=== PATIENT | male | born 1955 | race Caucasian/White ===

== ENCOUNTER → 2018-11-18 | Outpatient (CLI) | payer BC ==
--- NOTE | 2018-11-18 12:50 | CONS ---
CONSULTATION CONSULTATION NOTE FOR SLEEP APNEA: This 63-year-old male patient coming into the sleep center at [facility] due to concerns of sleep apnea. The patient has snoring and has been told to quit breathing by his . The patient is currently retired. He is worried that this problem is affecting his health in general. He is feeling a bit tired and sleepy during the day. He goes to bed between 10 and midnight and wakes up at 6 a.m. in the morning. His current Whiterocks Score is at 12. He takes a few minutes to fall asleep. His sleep is not fragmented. No recent weight gain, probably only limited weight gain of 6 to 7 pounds since his residential. No sleep paralysis, hallucinations or cataplexy. Patient sleeps on his back. No TV in the bedroom. He is nonsmoker. No history of substance abuse or alcoholism. No history of insomnia. PAST MEDICAL HISTORY: Hypertension, hyperlipidemia and acid reflux. SURGICAL HISTORY: Negative. DRUG ALLERGIES: Drug allergies are to PENICILLINS. OUTPATIENT MEDICATION LIST: Outpatient medication list includes: Pravastatin 40 q day, omeprazole 20 q. day, atenolol 50 q. day, losartan 50 mg p.o. q. day, hydrochlorothiazide 12.5 mg p.o. q. day. SOCIAL HISTORY: Nonsmoker. No history of alcoholism. No history of IV drugs. FAMILY HISTORY: Positive for sleep apnea in his brother who wears a CPAP and his father with sleep apnea. REVIEW OF SYSTEMS: Fourteen-point review of system was done. No history of any insomnia. No choking or gasping for air during sleep. No nocturia. No grinding of the teeth. No sleepwalking or dry mouth. He is a nose breather. No anxiety or panic attacks. No claustrophobia. No palpitation. No heartburn. No restlessness of lower extremities. No depression. PHYSICAL EXAMINATION: VITAL SIGNS: BP is 137/80, pulse 56, respirations 16, temperature 98.6, saturation 96% on room air. Height 5 feet 4 inches, weight is 185, neck size is 16 inches. GENERAL APPEARANCE: Calm, comfortable. HEAD: Atraumatic, normocephalic. NECK: Supple. No JVD. Mallampati class 4. No goiter or neck masses. LUNGS: Clear to auscultation. HEART: Sounds regular rate and rhythm. Normal S1, S2. No S3, S4. No murmurs. ABDOMEN: Soft, nontender. No organomegaly. EXTREMITIES: No edema. No cyanosis or clubbing. NEUROLOGIC: Alert and oriented x3. No focal neurological deficits. PSYCHIATRIC: Negative for anxiety or depression. IMPRESSION: 1. Suspected obstructive sleep apnea based on snoring, witnessed apneas and chronic tiredness and sleepiness with an Whiterocks score of 12. 2. Hypertension. 3. Hyperlipidemia. 4. Acid reflux. PLAN: 1. Encourage weight loss. 2. Sleep on his side. 3. Avoid driving, especially when feeling drowsy or sleepy. 4. Investigation for sleep apnea with a polysomnogram will be done and further recommendations are to follow. MMODL / IJN: [id number] /
== END | disposition home or self-care (01) ==
CPT/HCPCS: 99211

== ENCOUNTER → 2019-03-24 | Outpatient (CLI) | payer BC ==
--- NOTE | 2019-03-24 18:37 | PN ---
PROGRESS NOTE Keyshawn is 64 with severe obstructive sleep apnea, AHI of 55, coming in for a compliancy check. The patient underwent CPAP therapy at a pressure of 15 cm of water based on the titration that was completed recently. Note that the patient was doing well at a lower level of pressure, yet I decided to give him CPAP pressure of 15 to maintain his saturation above 90%. On today's evaluation he was having some leaks around the mask and, based on the compliance data, he is leaking on the order of 44 L/minute. He is using a DreamWear [id number]. His AHI is down to 3.5 and the treatment is successful, as the patient is achieving more than 4 hours of CPAP use for 100% of the time. He is averaging around 6 hours of CPAP use per night. Clinically he is feeling better; much more alert and awake during the day. Snoring has subsided. The patient has no major complaints for now. No tiredness or sleepiness or fatigue. He wants to explore other mask options. REVIEW OF SYSTEMS: Fourteen-point review of systems was done. Positive findings were all mentioned above in the history of present illness. PHYSICAL EXAMINATION: BP is 142/89, pulse 56, respirations 16, temperature 98.6. Saturation is 96% on room air. Red Wing Score is 7. Weight is 193.4. GENERAL APPEARANCE: Calm, comfortable. HEAD: Atraumatic, normocephalic. NECK: Supple. No JVD. No goiter or neck masses. LUNGS: Clear to auscultation. HEART: Heart sounds are regular rate and rhythm. Normal S1, S2. No S3, S4. No murmurs. ABDOMEN: Soft, nontender. No organomegaly. EXTREMITIES: No edema. No cyanosis or clubbing. NEUROLOGIC: Alert and oriented x3. No focal neurological deficits. PSYCHIATRIC: Negative for anxiety or depression. IMPRESSION: 1. Severe obstructive sleep apnea with an apnea/hypopnea index of 55, currently on CPAP pressure of 15 cm of water. Improved clinically; no major hypersomnia or sleepiness. 2. Hypersomnia, improved. Red Wing Score is 12. 3. Hypertension. 4. Hyperlipidemia. 5. Acid reflux. PLAN: 1. Change the patient to an APAP mode, minimum pressure of 8, maximum pressure of 15. 2. Offer this patient an AirFit N30i small-sized nose mask. 3. Encourage weight loss. 4. Do a short-term compliancy in regard to his CPAP therapy. I would like to see improvement in the leaks around the mask. Humidity level is at 4 with a temperature of tubing at 86 degrees Fahrenheit. Will continue to follow. MIKE / CHENGN: [id number] /
== END | disposition home or self-care (01) ==
LOC: SLEEP 16:08
PROVIDERS: ATTEND Internal Medicine Critical Care Medicine
DX: G47.33 Obstructive sleep apnea (adult) (pediatric) (principal); I10 Essential (primary) hypertension; E78.5 Hyperlipidemia, unspecified; K21.9 Gastro-esophageal reflux disease without esophagitis; Z99.89 Dependence on other enabling machines and devices

== ENCOUNTER → 2020-03-29 | Outpatient (CLI) | payer MEDICARE ==
--- NOTE | 2020-03-29 17:25 | PN ---
PROGRESS NOTE Keyshawn is coming in for an annual check regarding his DIONISIO. He is on an APAP, minimum pressure of 8, maximum pressure of 15, for severe obstructive sleep apnea with a baseline AHI of 55. His weight has been down by around 6 pounds. He remains extremely compliant, averaging around 7.6 hours of CPAP use per night, and CPAP use for more than 4 hours is above 95%. Average pressure is 12.6 cm of water and the leak is on the order of 29 L/minute and AHI is down to 2.5 while on treatment. His current mask interface is an AirFit N30i, medium-sized. No issues with cardiovascular disease. His blood pressure apparently has been under good control. It is a little bit elevated on today's evaluation. No angina. No palpitations. No chest pain. No atrial fibrillation. PHYSICAL EXAMINATION: VITAL SIGNS: BP is 159/69, pulse 56, respirations 16, temperature 96.4, saturation 99% on room air. Height is 5 feet 4 inches weight, weight is 187, BMI 31.6. Carnegie score is at 3. GENERAL APPEARANCE: Calm, comfortable. HEAD: Atraumatic, normocephalic. NECK: Supple. No JVD. No goiter or neck masses. LUNGS: Clear to auscultation. HEART: Heart sounds are regular rate and rhythm. Normal S1, S2. No S3, S4. No murmurs. ABDOMEN: Soft, nontender. No organomegaly. EXTREMITIES: No edema. No cyanosis or clubbing. IMPRESSION: 1. Symptomatic severe obstructive sleep apnea with an apnea/hypopnea index of 55, still on successful treatment. 2. Hypersomnia, recovered. 3. Hypertension. PLAN: The patient at times is having high pressure sensations, especially in the middle of the night. I am going to limit the maximum pressure down to 30 cm of water and drop the minimum pressure down to 5. As such, the patient will be on an APAP mode, on a minimum pressure of 5 and a maximum pressure of 13. Keep the same mask interface. 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 See me back in a year's time in followup. MMODL / IJN: [id number] /
== END | disposition home or self-care (01) ==
LOC: SLEEP 16:03
PROVIDERS: ATTEND Internal Medicine Critical Care Medicine
DX: G47.33 Obstructive sleep apnea (adult) (pediatric) (principal); Z99.89 Dependence on other enabling machines and devices; I10 Essential (primary) hypertension

== ENCOUNTER 2020-11-25 08:43 | Day surgery (SDC) | payer MEDICARE ==
[2020-11-23 10:03] VITALS: BMI 30.2
[~2020-11-25 08:43] MED LIST: LACTATED RINGERS 1,000 ML IV SCH; LIDOCAINE 1% (10MG/ML) FOR IV START INTRADERMA PRN
[2020-11-25 08:59] VITALS: TEMP 98.2
[2020-11-25] MEDS ORDERED: LACTATED RINGERS 1,000 ML IV ONE (08:59)
[2020-11-25] MEDS ORDERED: PROPOFOL 10 MG/ML 20 ML VIAL IV ONE (10:29)
[2020-11-25] MEDS ORDERED: LIDOCAINE 1% INJ 10MG/ML (20 ML MDV) ONE (10:29)
--- NOTE | 2020-11-25 10:46 | P.PCN ---
Date of Procedure: 11/25/20 Procedure(s) Performed: BRIEF HISTORY: Patient is a 65-year-old pleasant white male scheduled for an elective colonoscopy as a part of screening for colorectal neoplasia. PROCEDURE PERFORMED: Colonoscopy. PREOPERATIVE DIAGNOSIS: Screening for colon cancer. IV sedation per Anesthesia. PROCEDURE: After informed consent was obtained, the patient, was brought into the endoscopy unit. IV sedation was administered by Anesthesia under continuous monitoring. Digital rectal examination was normal. Initially the Olympus CF-160 flexible video colonoscope was then inserted in the rectum, gradually advanced into the cecum without any difficulty. Careful examination was performed as the scope was gradually being withdrawn. Ileocecal valve and the appendiceal orifice were visualized and appeared normal. Prep was excellent. Mucosa of the cecum, ascending colon, transverse colon, descending colon, sigmoid colon, and rectum appeared normal. Moderate sigmoid diverticulosis. Retroflexion was performed in the rectum and no lesions were seen. The patient tolerated the procedure well. IMPRESSION: Normal-appearing colon from rectum to cecum with no evidence of colorectal neoplasia . Moderate sigmoid diverticulosis. RECOMMENDATIONS: Findings of this examination were discussed with the patient as well as his family. He was advised to have a repeat screening colonoscopy in 10 years..
[2020-11-25 10:53] VITALS: BP 127/68; PULSE 58; RESP 14
== END 2020-11-25 11:39 | disposition home or self-care (01) ==
LOC: ORWHC2ENDO 08:43
PROVIDERS: ATTEND Internal Medicine Gastroenterology
DX: Z12.11 Encounter for screening for malignant neoplasm of colon (principal); K57.30 Diverticulosis of large intestine without perforation or abscess without bleeding
CPT/HCPCS: G0121; J2001; J2704

== ENCOUNTER → 2021-04-18 | Outpatient (CLI) | payer MEDICARE ==
--- NOTE | 2021-04-18 11:21 | US ---
EXAMINATION TYPE: US venous doppler duplex LE LT DATE OF EXAM: 04/18/2021 10:50 AM COMPARISON: NONE CLINICAL HISTORY: 66-year-old male I80.9 PHLEBITIS AND THROMBOPHLEBITIS OF UNSPECIFIED SITE. SIDE PERFORMED: Left TECHNIQUE: The lower extremity deep venous system is examined utilizing real time linear array sonog jose with graded compression, doppler sonography and color-flow sonography. FINDINGS: VESSELS IMAGED: Common Femoral Vein Deep Femoral Vein Greater Saphenous Vein * Femoral Vein Popliteal Vein Small Saphenous Vein * Proximal Calf Veins (* superficial vessels) Left Leg: Negative for DVT IMPRESSION: No evidence for DVT within the left lower extremity imaged from the groin to the upper calf.
== END | disposition home or self-care (01) ==
LOC: RADUSWWP 10:25
PROVIDERS: ATTEND Orthopaedic Surgery
DX: I80.9 Phlebitis and thrombophlebitis of unspecified site (principal)

== ENCOUNTER → 2022-08-21 | Outpatient (CLI) | payer MEDICARE ==
--- NOTE | 2022-08-21 16:21 | P.PN ---
Progress Note - Text Progress Note Date: 08/21/22 This is a very pleasant 67-year-old male patient with known history of obstructive sleep apnea was coming in for a follow-up. His last evaluation with me was on 03/29/2020. The patient is known to have severe DIONISIO with an AHI of 55. He has a weight around 187 pounds and currently is down to 182. He remains on APAP therapy pressures of 5/13 cm of water and is using the air fit N30i small size nasal mask. His treatment has remained successful. His waken up refreshed and alert during the day. No major hypersomnia or sleepiness during the day. No tiredness pain no fatigue. The patient has been averaging about 6.4 hours of APAP use per night. His machine usage for more than 4 hours is 27 out of 30. The patient did leak is in order of 20 L/m and his AHI is down to 3.1 while on treatment. As such, the patient's treatment has been extremity successful. No hypersomnia or sleepiness during the day. Machine is functional. No new onset conditions. Patient's Odan[place] score is at 5 BP is 131/74, pulse is 60, respirations 16, temperature 97.7, and the patient's pulse ox is 96% on room air oxygen. Weight is 182 The patient appeared well nourished and normally developed. Vital signs as documented. Head exam is unremarkable. No scleral icterus or corneal arcus noted. Neck is without jugular venous distension, thyromegaly, or carotid bruits. Carotid upstrokes are brisk bilaterally. Lungs are clear to auscultation and percussion. Cardiac exam reveals the PMI to be normally sized and situated. Rhythm is regular. First and second heart sounds normal. No murmurs, rubs or gallops. Abdominal exam reveals normal bowel sounds, no masses, no organomegaly and no aortic enlargement. Extremities are nonedematous and both femoral and pedal pulses are normal.Examination of the skin revealed no evidence of significant rashes, suspicious appearing nevi or other concerning lesions.Neurologically, the patient is awake and alert and the patient does not have any focal neurological deficit. Cranial nerves are essentially intact. Assessment Obstructive sleep apnea, severe with an AHI of 55, successful CPAP therapy is being offered to this patient at a pressures of 5/13 APAP mode Chronic hypersomnia, improved Hypertension Hyperlipidemia Acid reflux Plan Continue CPAP therapy the same level of pressure. Average pressure delivered by the machines around 12.1 cm of water which is comparable to the same pressure delivered few years back. Refill all of the supplies. No other active issues for now. The machine is functional. See me back in 2 years time and follow-up.
== END ==
LOC: SLEEP 15:51
PROVIDERS: ATTEND Internal Medicine Critical Care Medicine
DX: G47.33 Obstructive sleep apnea (adult) (pediatric) (principal); Z99.89 Dependence on other enabling machines and devices; I10 Essential (primary) hypertension; E78.5 Hyperlipidemia, unspecified; K21.9 Gastro-esophageal reflux disease without esophagitis; Z88.0 Allergy status to penicillin
CPT/HCPCS: 99212